=== PATIENT | male | born 1990 ===

== ENCOUNTER 2020-06-20 08:33 | Emergency (ER) ==
[~2020-06-20] VITALS: Ht 185.4 cm; Wt 81.6 kg
[2020-06-20] MEDS ORDERED: SODIUM CHLORIDE 0.9% 1000ML 1,000 ML IV STA (08:53)
[2020-06-20] MEDS ORDERED: LORAZEPAM INJ 2 MG/ML VIAL IM STA (08:53)
[2020-06-20] MEDS ORDERED: DIAZEPAM INJ 5 MG/ML 2 ML IV ONE (09:00)
[2020-06-20] MEDS ORDERED: LORAZEPAM INJ 2 MG/ML VIAL ONE (09:03)
[2020-06-20 11:33] LABS: BASOPHILS # (AUTO) 0.1 (0.0-0.1); BASOPHILS % 0.8 % (0.0-1.0); EOSINOPHILS # (AUTO) 0.1 (0.0-0.4); EOSINOPHILS % 0.9 % (0.0-6.0); HEMATOCRIT 30.6 % (38.2-49.6); HEMOGLOBIN 8.7 g/dL (14.0-18.0); LYMPHOCYTES # (AUTO) 1.2 (1.0-3.2); LYMPHOCYTES % 18.5 % (18.0-39.1); MEAN CORPUSCULAR HEMOGLOBIN 20.4 pg (28-32); MEAN CORPUSCULAR HGB CONC 28.4 g/dL (31-35); MEAN CORPUSCULAR VOLUME 71.7 fL (81-99); MONOCYTES # (AUTO) 0.6 (0.2-0.8); MONOCYTES % 9.9 % (4.4-11.3); NEUTROPHILS # (AUTO) 4.5 (2.1-6.9); NEUTROPHILS % 69.7 % (38.7-80.0); PLATELET COUNT 176 x10e3/uL (140-360); RED BLOOD COUNT 4.27 x10e6/uL (4.3-5.7); RED CELL DISTRIBUTION WIDTH 18.6 % (11.7-14.4)
[2020-06-20 11:48] LABS: ALANINE AMINOTRANSFERASE 19 IU/L (0-55); ALBUMIN 4.1 g/dL (3.5-5.0); ALBUMIN/GLOBULIN RATIO 1.4 (0.8-2.0); ALKALINE PHOSPHATASE 141 IU/L (40-150); BLOOD UREA NITROGEN 5 mg/dL (7-26); BUN/CREATININE RATIO 6 (6-25); CALCIUM 8.3 mg/dL (8.4-10.2); CARBON DIOXIDE 25 mmol/L (22-29); CHLORIDE 104 mmol/L (98-107); CREATININE, SERUM 0.84 mg/dL (0.72-1.25); EST GLOMERULAR FILTRATION RATE > 60 ML/MIN (60-); GLUCOSE 80 mg/dL (74-118); SODIUM 143 mmol/L (136-145)
== END 2020-06-20 09:53 | disposition home or self-care (01) ==
LOC: ER 09:04
DX: F10.239 Alcohol dependence with withdrawal, unspecified (principal); Z76.5 Malingerer [conscious simulation]; G40.909 Epilepsy, unspecified, not intractable, without status epilepticus; F95.2 Tourette's disorder; G47.00 Insomnia, unspecified
CPT/HCPCS: 36415; 80053; 80320; 85025; 99284; J2060; J3360